=== PATIENT | male | born 1955 | race Two or more races ===

== ENCOUNTER 2017-01-18 14:21 | Emergency (ER) | payer MEDICAID, OTHER ==
[~2017-01-18] VITALS: Ht 167.6 cm; Wt 72.6 kg
[2017-01-18] MEDS ORDERED: PANTOPRAZOLE 40 MG/10 ML VIAL IV ONE (14:45)
[2017-01-18] MEDS ORDERED: cefTRIAXone 1GM/50ML D5W 50 ML IV ONE (14:45)
[2017-01-18] MEDS ORDERED: NALOXONE HCL 0.4 MG/ML VIAL IV ONE (14:45)
[2017-01-18 14:51] LABS: Urine Bilirubin Negative (Negative); Urine Blood 1+ /uL (Negative); Urine Color Yellow (Yellow); Urine Glucose 4+ mg/dL (Normal); Urine Ketone 1+ (Negative); Urine Nitrite Negative (Negative); Urine RBC 13 /hpf (0 - 3); Urine Squamous Epithelial Cell FEW /hpf (<5); Urine Urobilinogen Normal (Negative)
[2017-01-18 14:56] LABS: Basophils # (auto) 0 uL; Basophils % (auto) 0.1 % (0.0-2.0); CONDITION Y; Eosinophils # (auto) 0 uL; Hematocrit 34.3 % (41.0-53.0); Hemoglobin 11.9 g/dL (13.5-17.5); Lymphocytes # (auto) 0.9 uL; Lymphocytes % (auto) 6.1 % (10.0-50.0); Mean Corpuscular Hemoglobin 31.3 pg (28.0-32.0); Mean Corpuscular Hgb Conc. 34.7 g/dL (32.0-36.0); Mean Corpuscular Volume 90.2 fL (80.0-100.0); Mean Platelet Volume 11.2 fL (7.4-10.4); Monocytes # (auto) 0.2 uL; Monocytes % (auto) 1.2 % (0.0-12.0); Neutrophils # (auto) 13.3 uL; Neutrophils % (auto) 92.6 % (37.0-80.0); Platelet Count (auto) 316 10^3/uL (140-450); Red Cell Distribution Width 13.5 % (11.6-16.0); White Blood Cell 14.4 10^3/uL (4.4-10.8)
[2017-01-18] MEDS ORDERED: NICARDIPINE 25MG/250ML BAG KIT 250 ML IV ONE (14:57)
[2017-01-18] MEDS ORDERED: NICARDIPINE 25MG/250ML BAG KIT 250 ML IV SCH (15:03)
[2017-01-18 15:18] LABS: Albumin 3.2 g/dL (3.4-5.0); BUN/Creatinine Ratio 7.6; Calcium 7.8 mg/dL (8.5-10.1); Potassium 4.4 mmol/L (3.5-5.1)
[2017-01-18 15:20] LABS: Lactic Acid w/Reflex 4.8 mmol/L (0.4-2.0)
[2017-01-18 15:23] LABS: Bilirubin, Total 0.4 mg/dL (0.2-1.0); Total Protein 7.8 g/dL (6.4-8.2)
[2017-01-18 15:32] VITALS: BP 148/98
[2017-01-18 15:38] LABS: INR 1.05 (0.9-1.15); Partial Thromboplastin Time 24.7 sec (22.64-33.71); Prothrombin Time 11.4 sec (9.37-12.3)
[2017-01-18 15:51] LABS: REFLEX LACTIC ACID YES OR NO YES
== END 2017-01-18 16:15 | disposition short-term general hospital (02) ==
LOC: ER 14:28
DX: R41.82 Altered mental status, unspecified (principal); G93.41 Metabolic encephalopathy; I61.5 Nontraumatic intracerebral hemorrhage, intraventricular; I10 Essential (primary) hypertension; E11.9 Type 2 diabetes mellitus without complications; Z86.73 Personal history of transient ischemic attack (TIA), and cerebral infarction without residual deficits
CPT/HCPCS: 31500; 36415; 51702; 70450; 71010; 74176; 80053; 80307; 80320; 81001; 82140; 82962; 83605; 84484; 85025; 85610; 85730; 87040; 93005; 94002; 96365; 96375; 99291; C9113; J0696